=== PATIENT | male | born 1945 | race Caucasian/White ===

== ENCOUNTER → 2016-10-11 | Outpatient (CLI) | payer MEDICARE, MEDICAID | LOC: RAD 15:16 | PROVIDERS: ATTEND Nurse Practitioner Adult Health | DX: R91.1 Solitary pulmonary nodule (principal) | CPT/HCPCS: 71250 ==

== ENCOUNTER → 2017-02-01 | Outpatient (CLI) | payer MEDICARE, MEDICAID ==
--- NOTE | 2017-02-01 14:48 | RADIOLOGY REPORT (SQ) ---
EXAM DESCRIPTION: VENOUS UNILATERAL LOWER COMPLETED DATE/TIME: 02/01/2017 2:13 pm REASON FOR STUDY: LLE PHLEBITIS I80.12 PHLEBITIS AND THROMBOPHLEBITIS OF LEFT FEMORAL VEIN COMPARISON: None. TECHNIQUE: Dynamic and static cao scale and color images acquired of the left leg venous system. Se lected spectral images acquired with additional compression and augmentation maneuvers. The contralat eral common femoral vein and saphenofemoral junction were also imaged. Images stored on PACS. LIMITATIONS: None. FINDINGS: COMMON FEMORAL: Normal phasicity, compression and augmentation. No visualized echogenic ma terial on cao scale. No defects on color images. FEMORAL: Normal compression and augmentation. No visualized echogenic material on cao scale. No defe cts on color images. POPLITEAL: Normal compression, augmentation. No visualized echogenic material on cao scale. No defec ts on color images. CALF VESSELS: Normal compression, augmentation. No visualized echogenic material on cao scale. No de fects on color images. GSV and SSV: Normal compression, augmentation. No visualized echogenic material on aco scale. No def ects on color images. ANY DEEP VENOUS INSUFFICIENCY: Not evaluated. ANY EVIDENCE OF POPLITEAL CYST: No. OTHER: No other significant finding. CONTRALATERAL COMMON FEMORAL VEIN AND SAPHENOFEMORAL JUNCTION: Normal phasicity, compression and augmentation. No visualized echogenic material on cao scale. No de fects on color images. IMPRESSION: NO EVIDENCE DVT OR SVT IN THE LEFT LEG. TECHNICAL DOCUMENTATION: JOB ID: [id number] [employer]- All Rights Reserved
== END ==
LOC: SP 13:09
PROVIDERS: ATTEND Internal Medicine
DX: I80.12 Phlebitis and thrombophlebitis of left femoral vein (principal)
CPT/HCPCS: 93971

== ENCOUNTER → 2017-02-03 | Outpatient (CLI) | payer MEDICARE, MEDICAID ==
[2017-02-03 09:56] LABS: PROTHROMBIN TIME 22.5 SEC (11.4-15.4)
== END ==
LOC: OD 08:49
PROVIDERS: ATTEND Specialist
DX: I48.92 Unspecified atrial flutter (principal); Z79.01 Long term (current) use of anticoagulants
CPT/HCPCS: 36415; 85610

== ENCOUNTER → 2017-03-08 | Outpatient (CLI) | payer MEDICARE, MEDICAID ==
[2017-03-08 11:14] LABS: PROTHROMBIN TIME 20.9 SEC (11.4-15.4)
== END ==
LOC: OD 09:31
PROVIDERS: ATTEND Internal Medicine
DX: I48.92 Unspecified atrial flutter (principal); Z79.01 Long term (current) use of anticoagulants
CPT/HCPCS: 36415; 85610

== ENCOUNTER → 2017-04-04 | Outpatient (CLI) | payer MEDICARE, MEDICAID ==
[2017-04-04 10:50] LABS: PROTHROMBIN TIME 21.8 SEC (11.4-15.4)
== END ==
LOC: OD 10:03
PROVIDERS: ATTEND Internal Medicine
DX: I48.92 Unspecified atrial flutter (principal); Z79.01 Long term (current) use of anticoagulants
CPT/HCPCS: 36415; 85610

== ENCOUNTER → 2017-04-14 | Outpatient (CLI) | payer MEDICARE, MEDICAID | LOC: OD 16:21 | PROVIDERS: ATTEND Internal Medicine | DX: I48.92 Unspecified atrial flutter (principal); Z79.01 Long term (current) use of anticoagulants | CPT/HCPCS: 36415; 85610 ==

== ENCOUNTER → 2017-04-28 | Outpatient (CLI) | payer MEDICARE, MEDICAID | LOC: OD 11:10 | PROVIDERS: ATTEND Internal Medicine | DX: I48.92 Unspecified atrial flutter (principal); Z79.01 Long term (current) use of anticoagulants | CPT/HCPCS: 36415; 85610 ==

== ENCOUNTER → 2017-05-12 | Outpatient (CLI) | payer MEDICARE, MEDICAID ==
[2017-05-12 12:11] LABS: PROTHROMBIN TIME 25.1 SEC (11.4-15.4)
== END ==
LOC: OD 11:00
PROVIDERS: ATTEND Internal Medicine
DX: I48.92 Unspecified atrial flutter (principal); Z79.01 Long term (current) use of anticoagulants
CPT/HCPCS: 36415; 85610

== ENCOUNTER → 2017-06-09 | Outpatient (CLI) | payer MEDICARE, MEDICAID ==
[2017-06-09 10:46] LABS: PROTHROMBIN TIME 26.3 SEC (11.4-15.4)
== END ==
LOC: OD 09:50
PROVIDERS: ATTEND Internal Medicine
DX: I48.92 Unspecified atrial flutter (principal); Z79.01 Long term (current) use of anticoagulants
CPT/HCPCS: 36415; 85610

== ENCOUNTER → 2017-07-06 | Outpatient (CLI) | payer MEDICARE, MEDICAID ==
[2017-07-06 17:28] LABS: PROTHROMBIN TIME 25.2 SEC (11.4-15.4)
== END ==
LOC: OD 16:12
PROVIDERS: ATTEND Internal Medicine
DX: I48.92 Unspecified atrial flutter (principal); Z79.01 Long term (current) use of anticoagulants
CPT/HCPCS: 36415; 85610

== ENCOUNTER → 2017-08-09 | Outpatient (CLI) | payer MEDICARE, MEDICAID ==
[2017-08-09 16:19] LABS: PROTHROMBIN TIME 30.5 SEC (11.4-15.4)
== END ==
LOC: OD 15:05
PROVIDERS: ATTEND Internal Medicine
DX: I48.92 Unspecified atrial flutter (principal); Z79.01 Long term (current) use of anticoagulants
CPT/HCPCS: 36415; 85610

== ENCOUNTER → 2017-09-08 | Outpatient (CLI) | payer MEDICARE, MEDICAID ==
[2017-09-08 16:11] LABS: INTERNATIONAL RATION (INR) 2.12; PROTHROMBIN TIME 24.9 SEC (11.4-15.4)
== END ==
LOC: OD 15:18
PROVIDERS: ATTEND Internal Medicine
DX: I48.92 Unspecified atrial flutter (principal); Z79.01 Long term (current) use of anticoagulants
CPT/HCPCS: 36415; 85610

== ENCOUNTER → 2017-10-06 | Outpatient (CLI) | payer MEDICARE, MEDICAID ==
[2017-10-06 15:33] LABS: INTERNATIONAL RATION (INR) 2.46; PROTHROMBIN TIME 27.9 SEC (11.4-15.4)
== END ==
LOC: OD 14:42
PROVIDERS: ATTEND Internal Medicine
DX: I48.92 Unspecified atrial flutter (principal); Z79.01 Long term (current) use of anticoagulants
CPT/HCPCS: 36415; 85610

== ENCOUNTER → 2017-10-24 | Outpatient (CLI) | payer MEDICARE, MEDICAID ==
--- NOTE | 2017-10-24 15:50 | RADIOLOGY REPORT (SQ) ---
EXAM DESCRIPTION: CT CHEST WITHOUT COMPLETED DATE/TIME: 10/24/2017 10:45 am REASON FOR STUDY: SOLITARY PULMONARY NODULE (R91.1) R91.1 SOLITARY PULMONARY NODULE COMPARISON: 2014 to 2016 TECHNIQUE: CT scan performed of the chest without intravenous contrast. Images reviewed with lung, soft tissue and bone windows. Reconstructed coronal and sagittal MPR images reviewed. All images st ored on PACS. All CT scanners at this facility use dose modulation, iterative reconstruction, and/or weight based d osing when appropriate to reduce radiation dose to as low as reasonably achievable (ALARA). [facility]: Dose Right [facility]: CareDose [facility]: Dose Right [facility]: Teradose 4D [facility]: [employer] RADIATION DOSE: CT Rad equipment meets quality standard of care and radiation dose reduction techniq ues were employed. CTDIvol: 19.3 mGy. DLP: 771 mGy-cm. mGy. LIMITATIONS: No technical limitations. FINDINGS: LUNGS AND PLEURA: Stable pulmonary nodule at right upper lobe image 18. Stable pulmonary nodule right middle lobe image 64. No new nodules. HILAR AND MEDIASTINAL STRUCTURES: No identified masses or abnormal nodes. No obvious aneurysm. HEART AND VASCULAR STRUCTURES: Marked coronary artery calcification. UPPER ABDOMEN: Stable right renal mass, presumed cysts. THYROID AND OTHER SOFT TISSUES: No masses. No adenopathy. BONES: No significant finding. HARDWARE: None in the chest. OTHER: No other significant findings. IMPRESSION: Stable pulmonary nodules. No additional follow-up necessary. Extensive coronary artery calcification. COMMENT: [place] CRITERIA FOR FOLLOW-UP OF PULMONARY NODULES Incidentally detected new nodules in persons 35 or older. HIGH RISK: History of smoking or other known risk factors. 6-8mm single solid nodule: LOW RISK: CT 6-12 mo; then consider CT 18-24 mo. HIGH RISK: CT 6-12 mo; th en CT 18-24 mo. TECHNICAL DOCUMENTATION: JOB ID: [id number] Quality ID # [id number]: Final reports with documentation of one or more dose reduction techniques (e.g., Au tomated exposure control, adjustment of the mA and/or kV according to patient size, use of iterative reconstruction technique) 2010 [employer]- All Rights Reserved
== END ==
LOC: RAD 10:30
PROVIDERS: ATTEND Internal Medicine Pulmonary Disease
DX: R91.1 Solitary pulmonary nodule (principal)
CPT/HCPCS: 71250

== ENCOUNTER → 2017-11-08 | Outpatient (CLI) | payer MEDICARE, MEDICAID ==
[2017-11-08 16:02] LABS: INTERNATIONAL RATION (INR) 2.25; PROTHROMBIN TIME 26.1 SEC (11.4-15.4)
== END ==
LOC: OD 14:49
PROVIDERS: ATTEND Internal Medicine
DX: I48.92 Unspecified atrial flutter (principal); Z79.01 Long term (current) use of anticoagulants
CPT/HCPCS: 36415; 85610

== ENCOUNTER → 2017-12-08 | Outpatient (CLI) | payer MEDICARE, MEDICAID ==
[2017-12-08 15:09] LABS: PROTHROMBIN TIME 23.8 SEC (11.4-15.4)
== END ==
LOC: OD 14:02
PROVIDERS: ATTEND Internal Medicine
DX: I48.92 Unspecified atrial flutter (principal); Z79.01 Long term (current) use of anticoagulants
CPT/HCPCS: 36415; 85610

== ENCOUNTER → 2018-01-03 | Outpatient (CLI) | payer MEDICARE, MEDICAID ==
[2018-01-03 15:25] LABS: INTERNATIONAL RATION (INR) 2.36
== END ==
LOC: OD 14:34
PROVIDERS: ATTEND Internal Medicine
DX: I48.92 Unspecified atrial flutter (principal); Z79.01 Long term (current) use of anticoagulants
CPT/HCPCS: 36415; 85610

== ENCOUNTER → 2018-02-03 | Outpatient (CLI) | payer MEDICARE, MEDICAID ==
[2018-02-03 11:09] LABS: PROTHROMBIN TIME 28.2 SEC (11.4-15.4)
== END ==
LOC: OD 10:36
PROVIDERS: ATTEND Internal Medicine
DX: I48.92 Unspecified atrial flutter (principal); Z79.01 Long term (current) use of anticoagulants
CPT/HCPCS: 36415; 85610

== ENCOUNTER → 2018-04-05 | Outpatient (CLI) | payer MEDICARE, MEDICAID ==
[2018-04-05 14:31] LABS: INTERNATIONAL RATION (INR) 2.51; PROTHROMBIN TIME 28.3 SEC (11.4-15.4)
== END ==
LOC: OD 13:51
PROVIDERS: ATTEND Specialist
DX: I48.92 Unspecified atrial flutter (principal); Z79.01 Long term (current) use of anticoagulants
CPT/HCPCS: 36415; 85610

== ENCOUNTER → 2018-05-08 | Outpatient (CLI) | payer MEDICARE, MEDICAID ==
[2018-05-08 13:21] LABS: PROTHROMBIN TIME 27.3 SEC (11.4-15.4)
== END ==
LOC: OD 12:00
PROVIDERS: ATTEND Internal Medicine
DX: I48.92 Unspecified atrial flutter (principal); Z79.01 Long term (current) use of anticoagulants
CPT/HCPCS: 36415; 85610

== ENCOUNTER → 2018-06-08 | Outpatient (CLI) | payer MEDICARE, MEDICAID ==
[2018-06-08 12:37] LABS: INTERNATIONAL RATION (INR) 2.76; PROTHROMBIN TIME 30.5 SEC (11.4-15.4)
== END ==
LOC: OD 12:03
PROVIDERS: ATTEND Internal Medicine
DX: I48.92 Unspecified atrial flutter (principal); Z79.01 Long term (current) use of anticoagulants
CPT/HCPCS: 36415; 85610

== ENCOUNTER → 2018-07-06 | Outpatient (CLI) | payer MEDICARE, MEDICAID ==
[2018-07-06 14:35] LABS: INTERNATIONAL RATION (INR) 2.81; PROTHROMBIN TIME 30.9 SEC (11.4-15.4)
== END ==
LOC: OD 13:57
PROVIDERS: ATTEND Internal Medicine
DX: I48.92 Unspecified atrial flutter (principal); Z79.01 Long term (current) use of anticoagulants
CPT/HCPCS: 36415; 85610

== ENCOUNTER → 2018-08-07 | Outpatient (CLI) | payer MEDICARE, MEDICAID ==
[2018-08-07 15:34] LABS: INTERNATIONAL RATION (INR) 2.25; PROTHROMBIN TIME 25.9 SEC (11.4-15.4)
== END ==
LOC: OD 14:03
PROVIDERS: ATTEND Internal Medicine
DX: I48.92 Unspecified atrial flutter (principal); Z79.01 Long term (current) use of anticoagulants
CPT/HCPCS: 36415; 85610

== ENCOUNTER → 2018-09-07 | Outpatient (CLI) | payer MEDICARE, MEDICAID ==
[2018-09-07 12:43] LABS: INTERNATIONAL RATION (INR) 2.63; PROTHROMBIN TIME 29.3 SEC (11.4-15.4)
== END ==
LOC: OD 11:42
PROVIDERS: ATTEND Internal Medicine
DX: Z79.01 Long term (current) use of anticoagulants (principal); I48.92 Unspecified atrial flutter
CPT/HCPCS: 36415; 85610

== ENCOUNTER → 2018-10-05 | Outpatient (CLI) | payer MEDICARE, MEDICAID ==
[2018-10-05 12:51] LABS: INTERNATIONAL RATION (INR) 3.09; PROTHROMBIN TIME 33.3 SEC (11.4-15.4)
== END ==
LOC: OD 11:41
PROVIDERS: ATTEND Internal Medicine
DX: I48.92 Unspecified atrial flutter (principal); Z79.01 Long term (current) use of anticoagulants
CPT/HCPCS: 36415; 85610

== ENCOUNTER → 2018-11-03 | Outpatient (CLI) | payer MEDICARE, MEDICAID ==
[2018-11-03 16:15] LABS: INTERNATIONAL RATION (INR) 2.56; PROTHROMBIN TIME 28.7 SEC (11.4-15.4)
== END ==
LOC: OD 14:41
PROVIDERS: ATTEND Internal Medicine
DX: I48.92 Unspecified atrial flutter (principal); Z79.01 Long term (current) use of anticoagulants
CPT/HCPCS: 36415; 85610

== ENCOUNTER → 2018-12-04 | Outpatient (CLI) | payer MEDICARE, MEDICAID ==
[2018-12-04 13:09] LABS: INTERNATIONAL RATION (INR) 2.17; PROTHROMBIN TIME 25.2 SEC (11.4-15.4)
== END ==
LOC: OD 11:42
PROVIDERS: ATTEND Internal Medicine
DX: I48.92 Unspecified atrial flutter (principal); Z79.01 Long term (current) use of anticoagulants
CPT/HCPCS: 36415; 85610

== ENCOUNTER → 2019-01-04 | Outpatient (CLI) | payer MEDICARE, MEDICAID ==
[2019-01-04 12:57] LABS: INTERNATIONAL RATION (INR) 2.15
== END ==
LOC: OD 11:36
PROVIDERS: ATTEND Internal Medicine
DX: I48.92 Unspecified atrial flutter (principal); Z79.01 Long term (current) use of anticoagulants
CPT/HCPCS: 36415; 85610

== ENCOUNTER → 2019-02-01 | Outpatient (CLI) | payer MEDICARE, MEDICAID ==
[2019-02-01 13:15] LABS: INTERNATIONAL RATION (INR) 2.51; PROTHROMBIN TIME 28.3 SEC (11.4-15.4)
== END ==
LOC: OD 11:47
PROVIDERS: ATTEND Internal Medicine
DX: I48.92 Unspecified atrial flutter (principal); Z79.01 Long term (current) use of anticoagulants
CPT/HCPCS: 36415; 85610

== ENCOUNTER → 2019-03-05 | Outpatient (CLI) | payer MEDICARE, MEDICAID ==
[2019-03-05 12:34] LABS: INTERNATIONAL RATION (INR) 2.31; PROTHROMBIN TIME 26.5 SEC (11.4-15.4)
== END ==
LOC: OD 12:03
PROVIDERS: ATTEND Internal Medicine
DX: I48.92 Unspecified atrial flutter (principal); Z79.01 Long term (current) use of anticoagulants
CPT/HCPCS: 36415; 85610

== ENCOUNTER → 2019-04-05 | Outpatient (CLI) | payer MEDICARE, MEDICAID ==
[2019-04-05 13:12] LABS: INTERNATIONAL RATION (INR) 2.25; PROTHROMBIN TIME 25.3 SEC (11.4-15.4)
== END ==
LOC: OD 11:46
PROVIDERS: ATTEND Specialist
DX: I48.92 Unspecified atrial flutter (principal); Z79.01 Long term (current) use of anticoagulants
CPT/HCPCS: 36415; 85610

== ENCOUNTER → 2019-05-07 | Outpatient (CLI) | payer MEDICARE, MEDICAID ==
[2019-05-07 12:58] LABS: INTERNATIONAL RATION (INR) 2.24; PROTHROMBIN TIME 25.2 SEC (11.4-15.4)
== END ==
LOC: OD 11:40
PROVIDERS: ATTEND Specialist
DX: Z79.01 Long term (current) use of anticoagulants (principal); I48.92 Unspecified atrial flutter
CPT/HCPCS: 36415; 85610

== ENCOUNTER → 2019-06-06 | Outpatient (CLI) | payer MEDICARE, MEDICAID ==
[2019-06-06 12:31] LABS: PROTHROMBIN TIME 25.7 SEC (11.4-15.4)
== END ==
LOC: OD 11:12
PROVIDERS: ATTEND Specialist
DX: I48.92 Unspecified atrial flutter (principal); Z79.01 Long term (current) use of anticoagulants
CPT/HCPCS: 36415; 85610

== ENCOUNTER → 2019-07-06 | Outpatient (CLI) | payer MEDICARE, MEDICAID ==
[2019-07-06 12:12] LABS: INTERNATIONAL RATION (INR) 2.23; PROTHROMBIN TIME 25.1 SEC (11.4-15.4)
== END ==
LOC: OD 11:13
PROVIDERS: ATTEND Specialist
DX: I48.92 Unspecified atrial flutter (principal); Z79.01 Long term (current) use of anticoagulants
CPT/HCPCS: 36415; 85610

== ENCOUNTER → 2019-08-06 | Outpatient (CLI) | payer MEDICARE, MEDICAID ==
[2019-08-06 12:05] LABS: PROTHROMBIN TIME 27.5 SEC (11.4-15.4)
== END ==
LOC: OD 11:31
PROVIDERS: ATTEND Specialist
DX: I48.92 Unspecified atrial flutter (principal); Z79.01 Long term (current) use of anticoagulants
CPT/HCPCS: 36415; 85610

== ENCOUNTER → 2019-09-06 | Outpatient (CLI) | payer MEDICARE, MEDICAID ==
[2019-09-06 11:50] LABS: INTERNATIONAL RATION (INR) 2.37; PROTHROMBIN TIME 26.3 SEC (11.4-15.4)
== END ==
LOC: OD 11:04
PROVIDERS: ATTEND Specialist
DX: I48.92 Unspecified atrial flutter (principal); Z79.01 Long term (current) use of anticoagulants
CPT/HCPCS: 36415; 85610

== ENCOUNTER → 2019-10-05 | Outpatient (CLI) | payer MEDICARE, MEDICAID ==
[2019-10-05 12:32] LABS: INTERNATIONAL RATION (INR) 2.78; PROTHROMBIN TIME 29.9 SEC (11.4-15.4)
== END ==
LOC: OD 11:47
PROVIDERS: ATTEND Specialist
DX: I48.92 Unspecified atrial flutter (principal); Z79.01 Long term (current) use of anticoagulants
CPT/HCPCS: 36415; 85610

== ENCOUNTER → 2019-11-07 | Outpatient (CLI) | payer MEDICARE, MEDICAID ==
[2019-11-07 12:38] LABS: INTERNATIONAL RATION (INR) 1.09; PROTHROMBIN TIME 14.1 SEC (11.4-15.4)
== END ==
LOC: OD 11:40
PROVIDERS: ATTEND Specialist
DX: I48.92 Unspecified atrial flutter (principal); Z79.01 Long term (current) use of anticoagulants
CPT/HCPCS: 36415; 85610

== ENCOUNTER → 2019-11-14 | Outpatient (CLI) | payer MEDICARE, MEDICAID ==
[2019-11-14 12:47] LABS: INTERNATIONAL RATION (INR) 2.33
== END ==
LOC: OD 11:38
PROVIDERS: ATTEND Specialist
DX: I48.92 Unspecified atrial flutter (principal); Z79.01 Long term (current) use of anticoagulants
CPT/HCPCS: 36415; 85610

== ENCOUNTER → 2019-12-14 | Outpatient (CLI) | payer MEDICARE, MEDICAID ==
[2019-12-14 09:40] LABS: INTERNATIONAL RATION (INR) 3.32; PROTHROMBIN TIME 34.5 SEC (11.4-15.4)
== END ==
LOC: OD 09:10
PROVIDERS: ATTEND Specialist
DX: I48.92 Unspecified atrial flutter (principal); Z79.01 Long term (current) use of anticoagulants
CPT/HCPCS: 36415; 85610

== ENCOUNTER → 2019-12-26 | Outpatient (CLI) | payer MEDICARE, MEDICAID ==
[2019-12-26 15:26] LABS: INTERNATIONAL RATION (INR) 3.67; PROTHROMBIN TIME 37.3 SEC (11.4-15.4)
== END ==
LOC: OD 14:50
PROVIDERS: ATTEND Specialist
DX: I48.92 Unspecified atrial flutter (principal); Z79.01 Long term (current) use of anticoagulants
CPT/HCPCS: 36415; 85610

== ENCOUNTER → 2020-01-07 | Outpatient (CLI) | payer MEDICARE, MEDICAID ==
[2020-01-07 10:40] LABS: PROTHROMBIN TIME 35.1 SEC (11.4-15.4)
== END ==
LOC: OD 08:52
PROVIDERS: ATTEND Specialist
DX: I48.92 Unspecified atrial flutter (principal); Z79.01 Long term (current) use of anticoagulants
CPT/HCPCS: 36415; 85610

== ENCOUNTER → 2020-01-18 | Outpatient (CLI) | payer MEDICARE, MEDICAID ==
[2020-01-18 09:15] LABS: INTERNATIONAL RATION (INR) 2.46; PROTHROMBIN TIME 27.2 SEC (11.4-15.4)
== END ==
LOC: OD 08:16
PROVIDERS: ATTEND Specialist
DX: I25.10 Atherosclerotic heart disease of native coronary artery without angina pectoris (principal); I48.92 Unspecified atrial flutter; I10 Essential (primary) hypertension; J44.9 Chronic obstructive pulmonary disease, unspecified; M10.9 Gout, unspecified; E78.5 Hyperlipidemia, unspecified; Z79.899 Other long term (current) drug therapy
CPT/HCPCS: 36415; 85610

== ENCOUNTER → 2020-01-25 | Outpatient (CLI) | payer MEDICARE, MEDICAID ==
[2020-01-25 08:50] LABS: INTERNATIONAL RATION (INR) 3.29; PROTHROMBIN TIME 34.2 SEC (11.4-15.4)
== END ==
LOC: OD 07:33
PROVIDERS: ATTEND Specialist
DX: I25.10 Atherosclerotic heart disease of native coronary artery without angina pectoris (principal); I10 Essential (primary) hypertension; I48.92 Unspecified atrial flutter; J44.9 Chronic obstructive pulmonary disease, unspecified; M10.9 Gout, unspecified; Z79.899 Other long term (current) drug therapy
CPT/HCPCS: 36415; 85610

== ENCOUNTER → 2020-02-07 | Outpatient (CLI) | payer MEDICARE, MEDICAID ==
[2020-02-07 08:52] LABS: INTERNATIONAL RATION (INR) 3.32; PROTHROMBIN TIME 34.5 SEC (11.4-15.4)
== END ==
LOC: OD 07:51
PROVIDERS: ATTEND Specialist
DX: I25.10 Atherosclerotic heart disease of native coronary artery without angina pectoris (principal); I10 Essential (primary) hypertension; I48.92 Unspecified atrial flutter; J44.9 Chronic obstructive pulmonary disease, unspecified; M10.9 Gout, unspecified; E78.5 Hyperlipidemia, unspecified; Z79.899 Other long term (current) drug therapy
CPT/HCPCS: 36415; 85610

== ENCOUNTER → 2020-02-22 | Outpatient (CLI) | payer MEDICARE, MEDICAID ==
[2020-02-22 11:47] LABS: INTERNATIONAL RATION (INR) 3.16; PROTHROMBIN TIME 33.1 SEC (11.4-15.4)
[2020-02-22 11:48] LABS: PARTIAL THROMBOPLASTIN TIME 46.2 SEC (23.5-35.8)
== END ==
LOC: OD 10:56
PROVIDERS: ATTEND Internal Medicine
DX: I48.0 Paroxysmal atrial fibrillation (principal)
CPT/HCPCS: 36415; 85610; 85730

== ENCOUNTER → 2020-03-25 | Outpatient (CLI) | payer MEDICARE, MEDICAID ==
[2020-03-25 11:43] LABS: INTERNATIONAL RATION (INR) 2.28; PROTHROMBIN TIME 25.5 SEC (11.4-15.4)
[2020-03-25 11:44] LABS: PARTIAL THROMBOPLASTIN TIME 37.6 SEC (23.5-35.8)
== END ==
LOC: OD 10:08
PROVIDERS: ATTEND Internal Medicine
DX: I48.0 Paroxysmal atrial fibrillation (principal)
CPT/HCPCS: 36415; 85610; 85730

== ENCOUNTER → 2020-04-22 | Outpatient (CLI) | payer MEDICARE, MEDICAID ==
[2020-04-22 17:48] LABS: INTERNATIONAL RATION (INR) 2.14
[2020-04-22 17:49] LABS: PARTIAL THROMBOPLASTIN TIME 38.8 SEC (23.5-35.8)
== END ==
LOC: OD 16:59
PROVIDERS: ATTEND Specialist
DX: I25.10 Atherosclerotic heart disease of native coronary artery without angina pectoris (principal); I10 Essential (primary) hypertension; I48.0 Paroxysmal atrial fibrillation; M10.9 Gout, unspecified; I48.92 Unspecified atrial flutter; E78.5 Hyperlipidemia, unspecified; Z79.899 Other long term (current) drug therapy
CPT/HCPCS: 36415; 85610; 85730

== ENCOUNTER → 2020-05-26 | Outpatient (CLI) | payer MEDICARE, MEDICAID ==
[2020-05-26 14:02] LABS: INTERNATIONAL RATION (INR) 1.81
[2020-05-26 14:03] LABS: PARTIAL THROMBOPLASTIN TIME 37.4 SEC (23.5-35.8)
== END ==
LOC: OD 13:24
PROVIDERS: ATTEND Specialist
DX: I25.10 Atherosclerotic heart disease of native coronary artery without angina pectoris (principal); I10 Essential (primary) hypertension; I48.92 Unspecified atrial flutter; I48.0 Paroxysmal atrial fibrillation; J44.9 Chronic obstructive pulmonary disease, unspecified; M10.9 Gout, unspecified; E78.5 Hyperlipidemia, unspecified; Z79.899 Other long term (current) drug therapy; Z79.01 Long term (current) use of anticoagulants
CPT/HCPCS: 36415; 85610; 85730

== ENCOUNTER → 2020-06-25 | Outpatient (CLI) | payer MEDICARE, MEDICAID ==
[2020-06-25 16:24] LABS: INTERNATIONAL RATION (INR) 1.91
[2020-06-25 16:25] LABS: PARTIAL THROMBOPLASTIN TIME 36.8 SEC (23.5-35.8)
== END ==
LOC: OD 14:47
PROVIDERS: ATTEND Internal Medicine
DX: I48.0 Paroxysmal atrial fibrillation (principal); Z79.01 Long term (current) use of anticoagulants
CPT/HCPCS: 36415; 85610; 85730

== ENCOUNTER → 2020-08-26 | Outpatient (CLI) | payer MEDICARE, MEDICAID ==
[2020-08-26 11:13] LABS: INTERNATIONAL RATION (INR) 2.51
[2020-08-26 11:14] LABS: PARTIAL THROMBOPLASTIN TIME 42.4 SEC (23.5-35.8)
== END ==
LOC: OD 09:13
PROVIDERS: ATTEND Internal Medicine
DX: I48.0 Paroxysmal atrial fibrillation (principal)
CPT/HCPCS: 36415; 85610; 85730

== ENCOUNTER → 2020-09-25 | Outpatient (CLI) | payer MEDICARE, MEDICAID ==
[2020-09-25 09:42] LABS: INTERNATIONAL RATION (INR) 2.73; PROTHROMBIN TIME 28.8 SEC (11.4-15.4)
[2020-09-25 09:43] LABS: PARTIAL THROMBOPLASTIN TIME 42.3 SEC (23.5-35.8)
== END ==
LOC: OD 08:40
PROVIDERS: ATTEND Internal Medicine
DX: I48.0 Paroxysmal atrial fibrillation (principal)
CPT/HCPCS: 36415; 85610; 85730